=== PATIENT | female | born 1945 | race Caucasian/White ===

== ENCOUNTER 2022-01-11 18:50 | Emergency (ER) | payer MEDICARE, OTHER ==
[~2022-01-11] VITALS: Ht 167.6 cm; Wt 90.7 kg
[2022-01-11 20:43] VITALS: BP 176/90
[2022-01-11] MEDS ORDERED: MYRBETRIQ25 MG (20:49)
== END 2022-01-11 20:43 | disposition home or self-care (01) ==
LOC: FSED 18:59
DX: S90.31XA Contusion of right foot, initial encounter (principal); W20.8XXA Other cause of strike by thrown, projected or falling object, initial encounter; Y92.89 Other specified places as the place of occurrence of the external cause; I10 Essential (primary) hypertension; Z86.718 Personal history of other venous thrombosis and embolism
CPT/HCPCS: 99283